=== PATIENT | male | born 1950 | race Caucasian/White ===

== ENCOUNTER → 2016-06-19 | Outpatient (CLI) | payer MEDICARE ==
[2014-10-17 18:54] VITALS: BP 113/63
--- NOTE | 2016-06-20 23:13 | EEG ---
DATE OF SERVICE: 06/19/2016 EEG DATE: 06/19/2016 to 06/20/2016. EEG NUMBER: [id number]. OBJECTIVE: This is a 65-year-old male patient with history of convulsion unknown type. EEG was requested to evaluate seizure activity. This is a senior living video EEG study with total video monitoring and EEG recording time of 24 hours from 06/19/2016 to 06/20/2016. METHOD: Twenty electrodes were applied according to the international 10-20 electrode placement system. EKG monitoring, hyperventilation, intermittent photic stimulation, monopolar and bipolar montages are routinely utilized. The record was obtained on a digital system with video monitoring. FINDINGS: 1. Background: The patient was recorded in the awake, drowsy and sleep states. The overall background activity is 10-30 microvolts. A posterior dominant rhythm of 8 Hz is observed. 2. Abnormalities: No specific epileptiform discharge or electrographic seizure is seen. No focal or diffuse slowing. 3. Activation: Hyperventilation was performed with good efforts and normal response. Intermittent photic stimulation was performed with photic driving. No specific epileptiform discharge or electrographic seizure induced by hyperventilation or intermittent photic stimulation. IMPRESSION: This is a senior living video EEG study with total video monitoring and EEG recording time of 24 hours from 06/19/2016 to 06/20/2016. This senior living video EEG study is within the normal limits of the study for the awake, drowsy and sleep states. No focal, lateralizing, specific epileptiform discharge, or electrographic seizure is seen. JEANNA RODRIGUES MD DR: ARAVIND/amee JOB#: [id number] / [id number] NATHALY
== END ==
LOC: SLPLAB 05:34
PROVIDERS: ATTEND Psychiatry & Neurology Neurology
DX: R56.9 Unspecified convulsions (principal)
CPT/HCPCS: 95951

== ENCOUNTER → 2019-02-27 | Outpatient (CLI) | payer MEDICARE ==
[2014-10-17 18:54] VITALS: BP 113/63
--- NOTE | 2019-02-27 15:50 | KCIC ---
Examination: KNEE BILAT 3V History: Pain Comparison/Correlation: None Findings: A total of 3 images of the right knee were obtained. Total of 3 images of the left knee were obtained. Right knee Severe medial compartment narrowing is present with subchondral sclerosis and spurring. Small right knee joint effusion is present. Spurring about the patellofemoral compartment is also present. No fracture or bony destruction. Left knee Very severe medial compartment narrowing is present with subchondral sclerosis and spurring. Marked spurring of the patellofemoral compartment is notable with remodeling. Small joint effusion is present. No fracture or bony destruction. Varus deformity bilaterally is seen greater on the left. Impression: Significant medial compartment degenerative narrowing and spurring along with subchondral sclerosis is evident bilaterally greater on the left. Joint effusions bilaterally are present. Varus deformity bilaterally is present. Electronically signed by: Gigi Braden MD (02/27/2019 3:47 PM) [facility]
== END | disposition home or self-care (01) ==
LOC: KCIC 12:14
PROVIDERS: ATTEND Family Medicine
DX: M21.162 Varus deformity, not elsewhere classified, left knee (principal); M21.161 Varus deformity, not elsewhere classified, right knee; M25.461 Effusion, right knee; M25.462 Effusion, left knee; M76.891 Other specified enthesopathies of right lower limb, excluding foot; M76.892 Other specified enthesopathies of left lower limb, excluding foot
CPT/HCPCS: 73562

== ENCOUNTER 2020-07-09 13:40 | Emergency (ER) | payer BC, MEDICARE ==
[~2020-07-09] VITALS: Ht 175.3 cm; Wt 111.0 kg
[2020-07-09 14:59] VITALS: BP 152/68
[2020-07-09] MEDS ORDERED: KETOROLAC 30 MG/ML VIAL. IM ONE (15:45)
[2020-07-09] MEDS ORDERED: ORPHENADRINE CITRATE 60 MG/2 ML VIAL. IM ONE (15:45)
--- NOTE | 2020-07-09 15:46 | RAD ---
XR SHOULDER_RIGHT 2+ VIEWS History: Reason: R shoulder pain after waking up. no known injury / Spl. Instructions: / History: Comparison: None. Technique: 3 views of the right shoulder. Findings: Postsurgical features from right reverse shoulder arthroplasty. Humeral cup and acetabular components appear well seated. No dislocation. There is no evidence for periprosthetic fracture. Moderate degenerative changes at the acromioclavicular joint. Dystrophic ossifications posterior to t he scapula likely postsurgical. Degenerative changes in the lower cervical spine. Calcified mediastinal granulomata. Impression: 1. Right reverse shoulder arthroplasty without evidence of complication. Electronically signed by: Tre Nuno MD (07/09/2020 3:43 PM) [facility]
--- NOTE | 2020-07-09 16:15 | ED.ADGEN ---
Past Medical History Past Medical History: Diabetes-Type II, Seizure Past Surgical History: Other Additional Past Surgical Histo: R SHOULDER REPAIR Smoking Status: Never Smoker Alcohol Use: None Drug Use: None General Adult EDM: Chief Complaint: SHOUDLER HPI: HPI: Patient is a 69 year old male who presents to the emergency department with complaints of pain to his right shoulder that radiates from his neck since awakening this morning. He denies any known injury. Patient states he has had a shoulder replacement on the affected side. Patient reports he is unable to move his arm without having severe pain. He denies any numbness, tingling, or weakness. Patient denies any headache, vision changes, chest pain, palpitations, shortness of breath, or fever. Patient denies any recent heavy lifting. Currently rates his pain a 10 out of 10 on the pain scale, he denies any alleviating factors, patient reports he tried taking hydrocodone at home with no relief from the medication. He reports that the pain increases with palpation and movement. Review of Systems: Review of Systems: Complete ROS is negative unless otherwise noted in HPI. Current Medications: Current Medications Medications (Trade) Dose Ordered Sig/[facility] Start Time Stop Time Status Last Admin Dose Admin Ketorolac Tromethamine (Toradol 30mg Vial) 30 mg 1X ONCE 07/09/20 15:45 07/09/20 15:46 DC 07/09/20 16:16 30 MG Orphenadrine Citrate (Norflex) 60 mg 1X ONCE 07/09/20 15:45 07/09/20 15:46 DC 07/09/20 16:16 60 MG Allergies: Allergies: Allergies Coded Allergies Type Severity Reaction Last Updated Verified No Known Drug Allergies 10/17/14 No Physical Exam: PE: See Above Constitutional: Well developed, well nourished, no acute distress, non-toxic appearance, appears uncomfortable. [] HENT: Normocephalic, atraumatic, bilateral external ears normal, nose normal. [] Eyes: PERRLA, EOMI, conjunctiva normal, no discharge, right cervical paraspinal tenderness to palpation Neck: Normal range of motion, no bony tenderness, no stridor. [] Cardiovascular:Heart rate regular rhythm Lungs & Thorax: Respirations even and unlabored, no retractions, no respiratory distress Skin: Warm, dry, no erythema, no rash. [] Extremities: R shoulder: limited ROM due to pain, normal sensation, diffuse TTP without crepitus or obvious deformity, No cyanosis, no edema. [] Neurologic: Alert and oriented X 3, no focal deficits noted. [] Psychologic: Affect normal, judgement normal, mood normal. [] Current Patient Data: Vital Signs: Vital Signs Date Time Temp Pulse Resp B/P (MAP) Pulse Ox O2 Delivery O2 Flow Rate FiO2 07/09/20 14:59 97.0 85 152/68 (96) 97 97.0 07/09/20 14:36 22 Room Air EKG: EKG: [] Heart Score: Risk Factors: Risk Factors: DM, Current or recent (<one month) smoker, HTN, HLP, family history of CAD, obesity. Risk Scores: Score 0 - 3: 2.5% MACE over next 6 weeks - Discharge Home Score 4 - 6: 20.3% MACE over next 6 weeks - Admit for Clinical Observation Score 7 - 10: 72.7% MACE over next 6 weeks - Early Invasive Strategies Radiology/Procedures: Radiology/Procedures: PROCEDURE: SHOULDER 2+V RIGHT XR SHOULDER_RIGHT 2+ VIEWS History: Reason: R shoulder pain after waking up. no known injury / Spl. Instructions: / History: Comparison: None. Technique: 3 views of the right shoulder. Findings: Postsurgical features from right reverse shoulder arthroplasty. Humeral cup and acetabular components appear well seated. No dislocation. There is no evidence for periprosthetic fracture. Moderate degenerative changes at the acromioclavicular joint. Dystrophic ossifications posterior to the scapula likely postsurgical. Degenerative changes in the lower cervical spine. Calcified mediastinal granulomata. Impression: 1. Right reverse shoulder arthroplasty without evidence of complication. [] Course & Med Decision Making: Course & Med Decision Making Pertinent Labs and Imaging studies reviewed. (See chart for details) 69-year-old male presented to the emergency department with complaints of right shoulder pain since awakening. X-ray revealed no acute findings. Patient was given 60 mg of IM Norflex and 30 mg of IM Toradol. Encouraged patient to apply ice to the sore areas or heat as needed for comfort. Prescription written for Flexeril and naproxen. Encouraged him to follow-up with his primary care doctor if symptoms persist return to the ER if symptoms worsen. Patient verbalized an understanding of home care, medications, follow-up, and return to ED instructions and was in agreement with the plan of care. [] Dragon Disclaimer: Dragon Disclaimer: This electronic medical record was generated, in whole or in part, using a voice recognition dictation system. Departure Departure Impression: Primary Impression: Right torticollis Additional Impression: Right shoulder pain Disposition: 01 DC HOME SELF CARE/HOMELESS Condition: STABLE Referrals: GIO MONDRAGON MD (PCP) POOJA CASON MD Patient Instructions: Shoulder Pain, [id number], Torticollis, Acute Additional Instructions: Fill prescription(s) and use as directed. Recommend application of ice, elevation, and rest of affected extremity. Follow-up with Dr. Cason or your primary care doctor next week for reevaluation, return to the ER if your symptoms worsen. Scripts Naproxen (NAPROXEN) 500 Mg Tablet 1 TAB PO BID PRN for PAIN for 10 Days, #20 TAB 0 Refills Prov: BRAYAN SYED APRN 07/09/20 Cyclobenzaprine Hcl (CYCLOBENZAPRINE HCL) 10 Mg Tablet 1 TAB PO TID PRN for MUSCLE PAIN for 10 Days, #30 TAB 0 Refills DO NOT TAKE WITH OPIATE PAIN MEDICATIONS Prov: BRAYAN SYED APRN 07/09/20 Problem Qualifiers Additional Impression: Right shoulder pain Chronicity: acute Qualified Codes: M25.511 - Pain in right shoulder BRAYAN SYED APRN Jul 09, 2020 16:15
[2020-07-09] MEDS ORDERED: NAPR-514 PO (16:26)
[2020-07-09] MEDS ORDERED: CYCL10TA2 PO (16:26)
== END 2020-07-09 16:51 | disposition home or self-care (01) ==
LOC: ER 13:40
DX: M43.6 Torticollis (principal); M25.511 Pain in right shoulder; E11.9 Type 2 diabetes mellitus without complications
CPT/HCPCS: 73030; 96372; 99284; J1885; J2360

== ENCOUNTER → 2021-03-29 | Outpatient (CLI) | payer BC ==
[~2021-03-29] MED LIST: CYCL10TA19 PO; NAPR-514 PO
--- NOTE | 2021-03-29 13:08 | KCIC ---
EXAM: Pelvis and right hip, 2 views. HISTORY: Pain. Trochanteric bursitis. COMPARISON: None. FINDINGS: A frontal view of the pelvis and frog-leg view the right hip are obtained. There is severe right hip joint space narrowing with degenerative subchondral sclerosis, subchondral cyst formation a nd marginal spurring. There is slight flattening of the superior articular aspect of the right femora l head and acetabulum. There is mild marginal left femoral head spurring. There is degenerative stein e involving the lower lumbar spine, not formally assessed on this exam. IMPRESSION: 1. Severe right hip osteoarthritis with associated flattening of the superior articular aspect of the acetabulum and femoral head. 2. Mild left hip osteoarthritis. 3. Degenerative change involving the lower lumbar spine. Electronically signed by: Maria R Riddle MD (03/29/2021 1:05 PM) [id number]
== END ==
LOC: KCIC 11:28
PROVIDERS: ATTEND Family Medicine
DX: M16.0 Bilateral primary osteoarthritis of hip (principal); M70.61 Trochanteric bursitis, right hip; M25.851 Other specified joint disorders, right hip
CPT/HCPCS: 73501